=== PATIENT | female | born 1995 ===

== ENCOUNTER 2018-01-23 13:00 | Outpatient (RCR) | payer BC ==
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
== END 2018-01-23 18:00 | disposition home or self-care (01) ==
LOC: PT 13:00
PROVIDERS: ATTEND Internal Medicine
DX: R07.81 Pleurodynia (principal)
CPT/HCPCS: 97161